=== PATIENT | female | born 1945 | race Hispanic/Latino ===

== ENCOUNTER → 2020-12-05 | Outpatient (CLI) | payer OTHER ==
[~2020-12-05] MED LIST: CIPR500T10 PO; CYCL5TAB PO; LOSA1TAB42 PO; MELO-106 PO; METF-444 PO; METR500T PO; ONDA-104 PO; SIMV40TA59 PO
== END | disposition home or self-care (01) ==
LOC: SHCH 12:10
PROVIDERS: ATTEND Internal Medicine Cardiovascular Disease
DX: R07.9 Chest pain, unspecified (principal)
CPT/HCPCS: 93306; 93356

== ENCOUNTER → 2020-12-11 | Outpatient (CLI) | payer OTHER ==
[~2020-12-11] MED LIST changes: +REGADENOSON 0.4 MG/5 ML PF SYG IVP SCH
== END | disposition home or self-care (01) ==
LOC: SHCH 09:12
PROVIDERS: ATTEND Internal Medicine Cardiovascular Disease
DX: R07.9 Chest pain, unspecified (principal)
CPT/HCPCS: 78452; 93017; 96374; A9500 ×2

== ENCOUNTER 2021-09-22 14:08 | Inpatient (IN) | payer OTHER ==
[~2021-09-22] VITALS: Ht 149.9 cm; Wt 56.6 kg
[~2021-09-22 14:08] MED LIST changes: -REGADENOSON 0.4 MG/5 ML PF SYG IVP SCH
[2021-09-22 14:41] LABS: BASOPHILS % (AUTO) 0.2 % (0.0-5.0); EOSINOPHILS % (AUTO) 0.1 % (0.0-8.0); HEMATOCRIT 38.7 % (36-48); LYMPHOCYTES % (AUTO) 10.8 % (21.0-51.0); MEAN CORPUSCULAR HEMOGLOBIN 30.5 pg (27.0-33.0); MEAN CORPUSCULAR HGB CONC 32.8 g/dL (32.0-36.0); MEAN CORPUSCULAR VOLUME 92.8 fL (79-99); MONOCYTES % (AUTO) 4.9 % (3.0-13.0); NEUTROPHILS % (AUTO) 83.5 % (40.0-77.0); PLATELET COUNT (AUTO) 208 K/uL (130-400); RED BLOOD CELL COUNT(AUTO) 4.17 MIL/uL (4.00-5.50); RED CELL DISTRIBUTION WIDTH 13.6 % (11.0-15.5); WHITE BLOOD COUNT (AUTO) 18.7 K/uL (4.8-10.8)
[2021-09-22 14:50] LABS: CREATININE 0.8 mg/dL (0.5-1.5); POTASSIUM 3.8 mmol/L (3.5-5.1)
[2021-09-22 14:52] LABS: INR 1.12 (0.85-1.15); PROTHROMBIN TIME 12.1 SEC (9.6-11.6)
[2021-09-22 14:54] LABS: PARTIAL THROMBOPLASTIN TIME 30.5 SEC (26.3-35.5)
[2021-09-22 14:57] LABS: BILIRUBIN,TOTAL 0.9 mg/dL (0.2-1.0); TOTAL PROTEIN, SERUM 7.2 g/dL (6.0-8.3)
[2021-09-22] MEDS ORDERED: IOHEXOL-350 75 ML VIAL IV ONE (15:04)
[2021-09-22] MEDS ORDERED: ZOSYN 3.375GM +NS 50ML IV SCH (15:30)
[2021-09-22] MEDS ORDERED: KETOROLAC 15MG/ML VIAL (15MG/ML) IV ONE (15:30)
[2021-09-22 16:13] LABS: APPEARANCE,URINE CLEAR (CLEAR); BILIRUBIN,URINE NEGATIVE (NEGATIVE); COLOR,URINE YELLOW (YELLOW); GLUCOSE, URINE (UA) NEGATIVE (NEGATIVE); KETONES,URINE NEGATIVE (NEGATIVE); LEUKOCYTE ESTERASE ,URINE NEGATIVE (NEGATIVE); NITRATE,URINE NEGATIVE (NEGATIVE); OCCULT BLOOD,URINE MODERATE (NEGATIVE); PROTEIN,URINE NEGATIVE (NEGATIVE); UROBILINOGEN,URINE 0.2 mg/dL (0.2-1.0)
[2021-09-22 16:38] LABS: BACTERIA,URINE Few /HPF (None Seen); SQUAMOUS EPITHELIAL CELL,UR Few /HPF (0-2); WBC,URINE 0-1 /HPF (0-1)
[2021-09-22] MEDS ORDERED: LABETALOL 20MG SYG IV PRN (17:30)
[2021-09-22] MEDS ORDERED: LACTULOSE 20 GM/30 ML UDCUP PO PRN (17:30)
[2021-09-22] MEDS ORDERED: ALBUTEROL 0.083% 2.5 MG/3 ML INH IH PRN (17:30)
[2021-09-22] MEDS ORDERED: HYDRALAZINE 20MG/ML VIAL IV PRN (17:30)
[2021-09-22] MEDS: DEXTROSE 5%-LACTATED RINGERS 1,000 ML IV SCH (19:01)
[2021-09-22] MEDS: INSULIN HUMULIN R 100 UNIT/ML 3ML SQ SCH (20:43)
[2021-09-22] MEDS: ACETAMINOPHEN 325 MG TAB PO PRN (20:43)
[2021-09-22 22:40] VITALS: BP 151/74
[2021-09-23] MEDS: HYDROMORPHONE 0.5 MG SYG (0.5MG/0.5ML) IVP PRN ×2 (01:02→10:50)
[2021-09-23] MEDS: ZOSYN 3.375GM +NS 50ML IV SCH ×3 (01:03→16:42)
[2021-09-23 04:00] VITALS: BP 124/62
[2021-09-23 06:17] LABS: BASOPHILS % (AUTO) 0.1 % (0.0-5.0); EOSINOPHILS % (AUTO) 0.4 % (0.0-8.0); HEMATOCRIT 36.7 % (36-48); LYMPHOCYTES % (AUTO) 9.8 % (21.0-51.0); MEAN CORPUSCULAR HEMOGLOBIN 30.5 pg (27.0-33.0); MEAN CORPUSCULAR HGB CONC 32.7 g/dL (32.0-36.0); MEAN CORPUSCULAR VOLUME 93.1 fL (79-99); MONOCYTES % (AUTO) 5.2 % (3.0-13.0); PLATELET COUNT (AUTO) 203 K/uL (130-400); RED BLOOD CELL COUNT(AUTO) 3.94 MIL/uL (4.00-5.50); RED CELL DISTRIBUTION WIDTH 13.6 % (11.0-15.5)
[2021-09-23 06:27] LABS: CREATININE 0.9 mg/dL (0.5-1.5); MAGNESIUM 1.8 mg/dL (1.80-2.40); PHOSPHORUS 3.4 mg/dL (2.5-4.9); POTASSIUM 3.5 mmol/L (3.5-5.1)
[2021-09-23] MEDS: INSULIN HUMULIN R 100 UNIT/ML 3ML SQ SCH ×4 (06:30→21:00)
[2021-09-23 08:00] VITALS: BP 123/66
[2021-09-23] MEDS: ENOXAPARIN SODIUM 40 MG/0.4 ML SYRINGE SQ SCH (08:47)
[2021-09-23] MEDS ORDERED: PANTOPRAZOLE 40 MG TAB DR PO SCH (09:00)
[2021-09-23] MEDS ORDERED: KETOROLAC 15MG/ML VIAL (15MG/ML) IM PRN (10:30)
[2021-09-23 11:29] VITALS: BP 123/66
[2021-09-23] MEDS: ONDANSETRON 4MG INJ IVP PRN ×2 (11:30→16:42)
[2021-09-23] MEDS: DEXTROSE 5%-LACTATED RINGERS 1,000 ML IV SCH ×2 (13:35→22:49)
[2021-09-23] MEDS: METRONIDAZOLE 500MG/100ML BAG 100 ML IVPB SCH ×2 (14:00→21:30)
[2021-09-23 16:00] VITALS: BP 136/60
[2021-09-23] MEDS ORDERED: KETOROLAC 15MG/ML VIAL (15MG/ML) IM SCH (16:30)
[2021-09-23] MEDS: PANTOPRAZOLE 40 MG/VIAL IVP SCH (16:44)
[2021-09-23 20:00] VITALS: BP 144/75
[2021-09-23] MEDS: KETOROLAC 15MG/ML VIAL (15MG/ML) IV SCH (22:48)
[2021-09-24] VITALS: BP 135/76
[2021-09-24] MEDS: ZOSYN 3.375GM +NS 50ML IV SCH ×3 (01:13→17:24)
[2021-09-24 04:00] VITALS: BP 151/66
[2021-09-24] MEDS: KETOROLAC 15MG/ML VIAL (15MG/ML) IV SCH ×4 (04:48→22:30)
[2021-09-24 04:53] LABS: BASOPHILS % (AUTO) 0.1 % (0.0-5.0); EOSINOPHILS % (AUTO) 0.5 % (0.0-8.0); HEMATOCRIT 35.3 % (36-48); MEAN CORPUSCULAR HEMOGLOBIN 30.3 pg (27.0-33.0); MEAN CORPUSCULAR HGB CONC 32.6 g/dL (32.0-36.0); MEAN CORPUSCULAR VOLUME 93.1 fL (79-99); MONOCYTES % (AUTO) 8.2 % (3.0-13.0); NEUTROPHILS % (AUTO) 75.9 % (40.0-77.0); PLATELET COUNT (AUTO) 210 K/uL (130-400); RED BLOOD CELL COUNT(AUTO) 3.79 MIL/uL (4.00-5.50); RED CELL DISTRIBUTION WIDTH 13.4 % (11.0-15.5); WHITE BLOOD COUNT (AUTO) 10.9 K/uL (4.8-10.8)
[2021-09-24 05:18] LABS: ALBUMIN 2.5 g/dL (3.5-5.0); BILIRUBIN,TOTAL 0.4 mg/dL (0.2-1.0); CREATININE 0.8 mg/dL (0.5-1.5); CRP QUANTITATIVE 248.4 mg/L (0.00-9.0); POTASSIUM 3.3 mmol/L (3.5-5.1); TOTAL PROTEIN, SERUM 6.6 g/dL (6.0-8.3)
[2021-09-24] MEDS: METRONIDAZOLE 500MG/100ML BAG 100 ML IVPB SCH ×2 (05:41→13:29)
[2021-09-24] MEDS: INSULIN HUMULIN R 100 UNIT/ML 3ML SQ SCH ×4 (06:04→20:20)
[2021-09-24 06:05] LABS: ERYTHROCYTE SEDIMENTATION RATE 75 MM/HR (0-30)
[2021-09-24] MEDS ORDERED: POTASSIUM CHLORIDE 10MEQ/100ML 10 MEQ/100 ML ML IV SCH (07:30)
[2021-09-24 08:00] VITALS: BP 134/63
[2021-09-24] MEDS: ENOXAPARIN SODIUM 40 MG/0.4 ML SYRINGE SQ SCH (09:16)
[2021-09-24] MEDS: PANTOPRAZOLE 40 MG/VIAL IVP SCH (09:16)
[2021-09-24] MEDS: DEXTROSE 5%-LACTATED RINGERS 1,000 ML IV SCH ×2 (10:04→22:54)
[2021-09-24 11:59] VITALS: BP 161/92
[2021-09-24 16:50] VITALS: BP 154/79
[2021-09-24] MEDS: ACETAMINOPHEN 325 MG TAB PO PRN (17:24)
[2021-09-24 19:45] VITALS: BP 150/80
[2021-09-24] MEDS: LISINOPRIL 10 MG TABLET PO SCH (20:20)
[2021-09-24] MEDS: ACETAMINOPHEN WITH CODEINE 1 TAB TAB PO PRN (22:55)
[2021-09-25] VITALS (7 sets, daily range): BP systolic 140–184; BP diastolic 67–89
[2021-09-25] MEDS: ZOSYN 3.375GM +NS 50ML IV SCH ×3 (01:31→17:40)
[2021-09-25] MEDS: KETOROLAC 15MG/ML VIAL (15MG/ML) IV SCH ×4 (04:30→16:30)
[2021-09-25 04:52] LABS: BASOPHILS % (AUTO) 0.1 % (0.0-5.0); EOSINOPHILS % (AUTO) 1.3 % (0.0-8.0); HEMATOCRIT 34.7 % (36-48); MEAN CORPUSCULAR HEMOGLOBIN 31.2 pg (27.0-33.0); MEAN CORPUSCULAR HGB CONC 33.1 g/dL (32.0-36.0); MONOCYTES % (AUTO) 10.2 % (3.0-13.0); PLATELET COUNT (AUTO) 224 K/uL (130-400); RED BLOOD CELL COUNT(AUTO) 3.69 MIL/uL (4.00-5.50); RED CELL DISTRIBUTION WIDTH 13.4 % (11.0-15.5); WHITE BLOOD COUNT (AUTO) 8.3 K/uL (4.8-10.8)
[2021-09-25 05:08] LABS: ALBUMIN 2.4 g/dL (3.5-5.0); BILIRUBIN,TOTAL 0.4 mg/dL (0.2-1.0); CREATININE 0.8 mg/dL (0.5-1.5); POTASSIUM 3.1 mmol/L (3.5-5.1); TOTAL PROTEIN, SERUM 6.4 g/dL (6.0-8.3)
[2021-09-25] MEDS: INSULIN HUMULIN R 100 UNIT/ML 3ML SQ SCH ×4 (05:44→21:00)
[2021-09-25] MEDS: DEXTROSE 5%-LACTATED RINGERS 1,000 ML IV SCH ×2 (07:51→17:43)
[2021-09-25] MEDS: PANTOPRAZOLE 40 MG/VIAL IVP SCH (10:49)
[2021-09-25] MEDS: ENOXAPARIN SODIUM 40 MG/0.4 ML SYRINGE SQ SCH (10:51)
[2021-09-25] MEDS: LISINOPRIL 10 MG TABLET PO SCH ×2 (10:51→21:37)
[2021-09-25] MEDS ORDERED: POTASSIUM CHLORIDE 20MEQ/100ML 100 ML IV PRN (13:00)
[2021-09-25] MEDS ORDERED: LABETALOL 20MG VIAL IV PRN ×2 (13:00→17:00)
[2021-09-25] MEDS ORDERED: LIDOCAINE HCL-MPF 1% 2ML VIAL IV PRN (13:00)
[2021-09-25] MEDS ORDERED: POTASSIUM CHLORIDE 10% ELIXIR 20 MEQ/15 ML UDCUP PO PRN (13:00)
[2021-09-25] MEDS: KCL 20 MEQ ERTAB PO PRN ×3 (13:22→21:36)
[2021-09-25] MEDS ORDERED: LACTULOSE 20 GM/30 ML UDCUP PO ONE (16:30)
[2021-09-25] MEDS ORDERED: LISINOPRIL 20 MG TABLET PO SCH (16:41)
[2021-09-25] MEDS: HYDRALAZINE 25MG TABLET PO SCH ×2 (17:38→21:31)
[2021-09-25] MEDS: ACETAMINOPHEN WITH CODEINE 1 TAB TAB PO PRN (21:30)
[2021-09-26] MEDS: ZOSYN 3.375GM +NS 50ML IV SCH ×3 (01:24→17:44)
[2021-09-26] MEDS: DEXTROSE 5%-LACTATED RINGERS 1,000 ML IV SCH ×2 (01:38→13:51)
[2021-09-26 03:50] VITALS: BP 155/75
[2021-09-26] MEDS: KETOROLAC 15MG/ML VIAL (15MG/ML) IV SCH ×4 (03:57→22:30)
[2021-09-26 05:11] LABS: BASOPHILS % (AUTO) 0.2 % (0.0-5.0); EOSINOPHILS % (AUTO) 1.2 % (0.0-8.0); LYMPHOCYTES % (AUTO) 28.9 % (21.0-51.0); MEAN CORPUSCULAR HEMOGLOBIN 30.1 pg (27.0-33.0); MEAN CORPUSCULAR HGB CONC 32.4 g/dL (32.0-36.0); MEAN CORPUSCULAR VOLUME 92.7 fL (79-99); MONOCYTES % (AUTO) 11.8 % (3.0-13.0); NEUTROPHILS % (AUTO) 57.4 % (40.0-77.0); PLATELET COUNT (AUTO) 241 K/uL (130-400); RED BLOOD CELL COUNT(AUTO) 3.99 MIL/uL (4.00-5.50); RED CELL DISTRIBUTION WIDTH 13.2 % (11.0-15.5); WHITE BLOOD COUNT (AUTO) 9.7 K/uL (4.8-10.8)
[2021-09-26 05:37] LABS: ALBUMIN 2.5 g/dL (3.5-5.0); BILIRUBIN,TOTAL 0.5 mg/dL (0.2-1.0); CREATININE 0.8 mg/dL (0.5-1.5); POTASSIUM 3.3 mmol/L (3.5-5.1); TOTAL PROTEIN, SERUM 6.7 g/dL (6.0-8.3)
[2021-09-26 07:00] VITALS: BP 188/85
[2021-09-26] MEDS: INSULIN HUMULIN R 100 UNIT/ML 3ML SQ SCH ×4 (07:30→21:00)
[2021-09-26] MEDS: HYDRALAZINE 25MG TABLET PO SCH ×3 (08:45→20:55)
[2021-09-26] MEDS: KCL 20 MEQ ERTAB PO PRN ×2 (08:46→19:44)
[2021-09-26] MEDS: ENOXAPARIN SODIUM 40 MG/0.4 ML SYRINGE SQ SCH (08:46)
[2021-09-26] MEDS: PANTOPRAZOLE 40 MG/VIAL IVP SCH (08:46)
[2021-09-26] MEDS: LISINOPRIL 10 MG TABLET PO SCH ×2 (08:46→20:54)
[2021-09-26] MEDS ORDERED: AMLODIPINE 5 MG TAB PO SCH (09:00)
[2021-09-26] MEDS: POLYETHYLENE GLYCOL 3350 17 GM POWD.PACK PO SCH (09:00)
[2021-09-26 11:45] VITALS: BP 151/71
[2021-09-26 15:00] VITALS: BP 145/68
[2021-09-26] MEDS ORDERED: METF-444 PO (19:54)
[2021-09-26] MEDS ORDERED: LOSA100T58 PO (19:54)
[2021-09-26] MEDS ORDERED: SERT-438 PO (19:54)
[2021-09-26] MEDS ORDERED: ATOR20TA65 PO (19:54)
[2021-09-26] MEDS ORDERED: BENZ-70 PO (19:54)
[2021-09-26 19:56] VITALS: BP 153/67
[2021-09-26] MEDS ORDERED: AZIT500T4 PO (19:57)
[2021-09-26] MEDS ORDERED: ESOM20CA60 PO (19:57)
[2021-09-26] MEDS: ACETAMINOPHEN WITH CODEINE 1 TAB TAB PO PRN (20:57)
[2021-09-26 23:39] VITALS: BP 151/67
[2021-09-27] MEDS: KCL 20 MEQ ERTAB PO PRN ×2 (02:10→18:51)
[2021-09-27] MEDS: ZOSYN 3.375GM +NS 50ML IV SCH ×3 (02:10→19:02)
[2021-09-27 03:45] VITALS: BP 144/69
[2021-09-27] MEDS: KETOROLAC 15MG/ML VIAL (15MG/ML) IV SCH ×4 (04:30→22:30)
[2021-09-27 04:52] LABS: BASOPHILS % (AUTO) 0.3 % (0.0-5.0); EOSINOPHILS % (AUTO) 1.8 % (0.0-8.0); HEMATOCRIT 37.2 % (36-48); LYMPHOCYTES % (AUTO) 38.9 % (21.0-51.0); MEAN CORPUSCULAR HEMOGLOBIN 29.6 pg (27.0-33.0); MEAN CORPUSCULAR HGB CONC 32.3 g/dL (32.0-36.0); MEAN CORPUSCULAR VOLUME 91.9 fL (79-99); MONOCYTES % (AUTO) 12.5 % (3.0-13.0); PLATELET COUNT (AUTO) 263 K/uL (130-400); RED BLOOD CELL COUNT(AUTO) 4.05 MIL/uL (4.00-5.50); RED CELL DISTRIBUTION WIDTH 13.2 % (11.0-15.5); WHITE BLOOD COUNT (AUTO) 7.9 K/uL (4.8-10.8)
[2021-09-27 05:13] LABS: ALBUMIN 2.4 g/dL (3.5-5.0); BILIRUBIN,TOTAL 0.4 mg/dL (0.2-1.0); CREATININE 0.8 mg/dL (0.5-1.5); POTASSIUM 3.5 mmol/L (3.5-5.1); TOTAL PROTEIN, SERUM 6.7 g/dL (6.0-8.3)
[2021-09-27 07:00] VITALS: BP 165/88
[2021-09-27] MEDS: INSULIN HUMULIN R 100 UNIT/ML 3ML SQ SCH ×4 (07:29→21:00)
[2021-09-27] MEDS: PANTOPRAZOLE 40 MG/VIAL IVP SCH (08:54)
[2021-09-27] MEDS: LISINOPRIL 10 MG TABLET PO SCH ×2 (08:54→21:18)
[2021-09-27] MEDS: ENOXAPARIN SODIUM 40 MG/0.4 ML SYRINGE SQ SCH (08:54)
[2021-09-27] MEDS: POLYETHYLENE GLYCOL 3350 17 GM POWD.PACK PO SCH (08:55)
[2021-09-27] MEDS: HYDRALAZINE 25MG TABLET PO SCH ×3 (08:55→21:18)
[2021-09-27] MEDS: AMLODIPINE 5 MG TAB PO SCH (08:55)
[2021-09-27] MEDS: DEXTROSE 5%-LACTATED RINGERS 1,000 ML IV SCH (09:15)
[2021-09-27 11:00] VITALS: BP 145/67
[2021-09-27 15:00] VITALS: BP 131/65
[2021-09-27 20:04] VITALS: BP 159/66
[2021-09-27] MEDS: ACETAMINOPHEN WITH CODEINE 1 TAB TAB PO PRN (21:23)
[2021-09-27 23:26] VITALS: BP 101/62
[2021-09-28] MEDS: ZOSYN 3.375GM +NS 50ML IV SCH ×2 (00:42→10:32)
[2021-09-28 03:52] VITALS: BP 110/61
[2021-09-28] MEDS: KETOROLAC 15MG/ML VIAL (15MG/ML) IV SCH ×2 (04:21→10:30)
[2021-09-28 05:18] LABS: MAGNESIUM 1.9 mg/dL (1.80-2.40); PHOSPHORUS 4.5 mg/dL (2.5-4.9); POTASSIUM 3.9 mmol/L (3.5-5.1)
[2021-09-28] MEDS: INSULIN HUMULIN R 100 UNIT/ML 3ML SQ SCH ×2 (06:38→11:30)
[2021-09-28 08:00] VITALS: BP 131/68
[2021-09-28] MEDS: AMLODIPINE 5 MG TAB PO SCH (10:30)
[2021-09-28] MEDS: HYDRALAZINE 25MG TABLET PO SCH ×2 (10:30→14:25)
[2021-09-28] MEDS: ENOXAPARIN SODIUM 40 MG/0.4 ML SYRINGE SQ SCH (10:31)
[2021-09-28] MEDS: POLYETHYLENE GLYCOL 3350 17 GM POWD.PACK PO SCH (10:31)
[2021-09-28] MEDS: PANTOPRAZOLE 40 MG/VIAL IVP SCH (10:31)
[2021-09-28] MEDS: LISINOPRIL 10 MG TABLET PO SCH (10:33)
[2021-09-28 11:55] VITALS: BP 113/55
[2021-09-28] MEDS ORDERED: POLY17PO4 PO (13:47)
[2021-09-28] MEDS ORDERED: AMOX-426 PO (13:47)
== END 2021-09-28 16:20 | disposition home or self-care (01) | DRG 392 ==
LOC: EDH 14:08 → EDHIP 17:26 → OBSVTOIN 17:26 → 3BH 22:20
PROVIDERS: ADMIT Internal Medicine Critical Care Medicine; ATTEND Internal Medicine Critical Care Medicine
DX: K57.32 Diverticulitis of large intestine without perforation or abscess without bleeding (principal); E11.9 Type 2 diabetes mellitus without complications; I10 Essential (primary) hypertension; E78.5 Hyperlipidemia, unspecified; D72.829 Elevated white blood cell count, unspecified; K76.0 Fatty (change of) liver, not elsewhere classified; M19.90 Unspecified osteoarthritis, unspecified site; K44.9 Diaphragmatic hernia without obstruction or gangrene; E78.00 Pure hypercholesterolemia, unspecified; Z79.84 Long term (current) use of oral hypoglycemic drugs; Z79.899 Other long term (current) drug therapy; Z90.49 Acquired absence of other specified parts of digestive tract; Z88.8 Allergy status to other drugs, medicaments and biological substances; Z80.0 Family history of malignant neoplasm of digestive organs
CPT/HCPCS: 36415; 71045; 74177; 80048; 80053; 81001; 82948; 83605; 83735; 84100; 84145; 84484; 85025; 85610; 85651; 85730; 86140; 87040; 93005; C9113; G0378; J1170; J1650; J1815; J1885; J2405; J2543; J3490; Q9967

== ENCOUNTER 2022-10-31 17:04 | Inpatient (IN) | payer OTHER ==
[~2022-10-31] VITALS: Ht 177.8 cm; Wt 54.4 kg
[~2022-10-31 17:04] MED LIST changes: +AMOX-426 PO; +ATOR20TA65 PO; +BENZ-226 PO; -CIPR500T10 PO; -CYCL5TAB PO; +ESOM20CA60 PO; +LOSA100T58 PO; -LOSA1TAB42 PO; -METR500T PO; -ONDA-104 PO; +POLY17PO4 PO; +SERT-438 PO; -SIMV40TA59 PO
[2022-10-31 17:17] LABS: BASOPHILS % (AUTO) 0.4 % (0.0-5.0); EOSINOPHILS % (AUTO) 0.7 % (0.0-8.0); HEMATOCRIT 43.5 % (36-48); LYMPHOCYTES % (AUTO) 33.6 % (21.0-51.0); MEAN CORPUSCULAR HEMOGLOBIN 30.4 pg (27.0-33.0); MEAN CORPUSCULAR HGB CONC 32.6 g/dL (32.0-36.0); MEAN CORPUSCULAR VOLUME 93.1 fL (79-99); NEUTROPHILS % (AUTO) 56.9 % (40.0-77.0); PLATELET COUNT (AUTO) 273 K/uL (130-400); RED BLOOD CELL COUNT(AUTO) 4.67 MIL/uL (4.00-5.50); WHITE BLOOD COUNT (AUTO) 11.8 K/uL (4.8-10.8)
[2022-10-31 17:27] LABS: POTASSIUM 3.9 mmol/L (3.5-5.1)
[2022-10-31] MEDS ORDERED: DILTIAZEM 125 MG/25 ML INJ 125 MG in 0.9%NACL 100ML 100 ML IV SCH (17:30)
[2022-10-31] MEDS ORDERED: 0.9%NACL 1000ML 1,000 ML IV ONE (17:30)
[2022-10-31] MEDS ORDERED: DILTIAZEM 25MG INJ IVP ONE (17:30)
[2022-10-31 17:36] LABS: MAGNESIUM 1.8 mg/dL (1.80-2.40); TOTAL PROTEIN, SERUM 8.3 g/dL (6.0-8.3)
[2022-10-31 17:57] LABS: B-TYPE NATRIURETIC PEPTIDE 266 pg/mL (0-100)
[2022-10-31] MEDS ORDERED: ACETAMINOPHEN 500 MG TABLET PO ONE (18:30)
[2022-10-31 18:31] LABS: APPEARANCE,URINE CLEAR (CLEAR); BILIRUBIN,URINE NEGATIVE (NEGATIVE); COLOR,URINE COLORLESS (YELLOW); GLUCOSE, URINE (UA) NEGATIVE (NEGATIVE); KETONES,URINE NEGATIVE (NEGATIVE); LEUKOCYTE ESTERASE ,URINE 25 Leu/uL (NEGATIVE); NITRATE,URINE NEGATIVE (NEGATIVE); OCCULT BLOOD,URINE NEGATIVE (NEGATIVE); PROTEIN,URINE 30 mg/dL (NEGATIVE); UROBILINOGEN,URINE 0.2 mg/dL (0.2-1.0)
[2022-10-31 18:55] LABS: BACTERIA,URINE RARE /HPF (None Seen); RBC,URINE 0-1 /HPF (0-1); SQUAMOUS EPITHELIAL CELL,UR RARE /HPF (0-2); YEAST,URINE BUDDING RARE /HPF (None Seen)
[2022-10-31] MEDS ORDERED: LORAZEPAM 2 MG/ML 1 ML VIAL IVP ONE (19:00)
[2022-10-31] MEDS ORDERED: ONDANSETRON 4MG INJ IVP PRN (19:00)
[2022-10-31] MEDS ORDERED: LABETALOL 20MG SYG IV PRN (19:00)
[2022-10-31] MEDS ORDERED: HYDRALAZINE 20MG/ML VIAL IV PRN (19:00)
[2022-10-31] MEDS ORDERED: CLONIDINE HCL 0.1 MG TABLET PO PRN (19:00)
[2022-10-31] MEDS ORDERED: TEMAZEPAM 15 MG CAPSULE PO PRN (19:00)
[2022-10-31] MEDS ORDERED: DOCUSATE SODIUM 100 MG CAP PO PRN (19:00)
[2022-10-31] MEDS ORDERED: LACTULOSE 20 GM/30 ML UDCUP PO PRN (19:00)
[2022-10-31 19:54] LABS: INR 0.94 (0.85-1.15); PROTHROMBIN TIME 10.3 SEC (9.6-11.6)
[2022-10-31 19:55] LABS: PARTIAL THROMBOPLASTIN TIME 24.7 SEC (26.3-35.5)
[2022-10-31] MEDS ORDERED: IOHEXOL 350 MG/ML 100ML INFUS..BTL IV ONE (23:07)
[2022-10-31 23:42] VITALS: BP 133/64
[2022-11-01] MEDS ORDERED: ASPIRIN 325MG EC TAB PO ONE (01:30)
[2022-11-01] MEDS ORDERED: ENOXAPARIN SODIUM 60 MG/0.6 ML SQ ONE (01:30)
[2022-11-01 01:41] LABS: CHOLESTEROL 157 mg/dL (<200); HDL CHOLESTEROL 50 mg/dL (35-85); LDL DIRECT 88 mg/dL (0-99); TRIGLYCERIDES 151 mg/dL (30-200)
[2022-11-01] MEDS: ATORVASTATIN 40 MG TABLET PO SCH ×2 (02:06→20:37)
[2022-11-01] MEDS: METOPROLOL SUCCINATE 50 MG TAB.SR.24H PO SCH ×2 (02:06→08:27)
[2022-11-01 03:18] VITALS: BP 109/62
[2022-11-01 04:34] LABS: BASOPHILS % (AUTO) 0.3 % (0.0-5.0); EOSINOPHILS % (AUTO) 1.4 % (0.0-8.0); HEMATOCRIT 38.8 % (36-48); LYMPHOCYTES % (AUTO) 44.7 % (21.0-51.0); MEAN CORPUSCULAR HEMOGLOBIN 30.5 pg (27.0-33.0); MEAN CORPUSCULAR VOLUME 95.3 fL (79-99); MONOCYTES % (AUTO) 11.3 % (3.0-13.0); NEUTROPHILS % (AUTO) 42.1 % (40.0-77.0); PLATELET COUNT (AUTO) 245 K/uL (130-400); RED BLOOD CELL COUNT(AUTO) 4.07 MIL/uL (4.00-5.50); RED CELL DISTRIBUTION WIDTH 13.2 % (11.0-15.5); WHITE BLOOD COUNT (AUTO) 9.3 K/uL (4.8-10.8)
[2022-11-01 04:52] LABS: CREATININE 0.9 mg/dL (0.5-1.5); POTASSIUM 4.1 mmol/L (3.5-5.1)
[2022-11-01 04:55] LABS: MAGNESIUM 1.8 mg/dL (1.80-2.40); PHOSPHORUS 4.2 mg/dL (2.5-4.9)
[2022-11-01] MEDS ORDERED: MAGNESIUM 2GM PREMIX 50ML 50 ML IV PRN (05:00)
[2022-11-01] MEDS ORDERED: ENOXAPARIN SODIUM 60 MG/0.6 ML SQ SCH (08:00)
[2022-11-01 08:06] VITALS: BP 139/75
[2022-11-01] MEDS: ASPIRIN 81MG CHEW TAB PO SCH (08:27)
[2022-11-01] MEDS: PANTOPRAZOLE 40 MG TAB DR PO SCH (08:27)
[2022-11-01 11:13] VITALS: BP 152/75
[2022-11-01] MEDS ORDERED: AZITHROMYCIN 500MG+NS 250ML IVPB SCH (11:30)
[2022-11-01] MEDS ORDERED: 0.9%NACL 50ML IV SCH (11:30)
[2022-11-01] MEDS ORDERED: ZOSYN 3.375GM +NS 50ML IVPB SCH (11:30)
[2022-11-01] MEDS ORDERED: METF-444 PO (15:08)
[2022-11-01] MEDS ORDERED: TRAZ-185 PO (15:08)
[2022-11-01] MEDS ORDERED: BACL5TAB PO (15:08)
[2022-11-01] MEDS ORDERED: METO50TA9 PO (15:08)
[2022-11-01] MEDS ORDERED: GABA-529 PO (15:08)
[2022-11-01 17:05] VITALS: BP 134/66
[2022-11-01] MEDS ORDERED: CLOPIDOGREL 300MG TAB PO SCH (18:00)
[2022-11-01] MEDS ORDERED: SOTALOL HCL 80 MG TABLET ONE (18:33)
[2022-11-01] MEDS: SOTALOL HCL 80 MG TABLET PO SCH (18:34)
[2022-11-01 20:09] VITALS: BP 127/66
[2022-11-01 23:53] VITALS: BP 142/81
[2022-11-02] VITALS (15 sets, daily range): BP systolic 130–168; BP diastolic 64–90
[2022-11-02 03:41] LABS: BASOPHILS % (AUTO) 0.5 % (0.0-5.0); EOSINOPHILS % (AUTO) 2.3 % (0.0-8.0); HEMATOCRIT 38.2 % (36-48); LYMPHOCYTES % (AUTO) 44.9 % (21.0-51.0); MEAN CORPUSCULAR HGB CONC 32.7 g/dL (32.0-36.0); MEAN CORPUSCULAR VOLUME 94.8 fL (79-99); MONOCYTES % (AUTO) 10.3 % (3.0-13.0); NEUTROPHILS % (AUTO) 41.7 % (40.0-77.0); PLATELET COUNT (AUTO) 241 K/uL (130-400); RED BLOOD CELL COUNT(AUTO) 4.03 MIL/uL (4.00-5.50); RED CELL DISTRIBUTION WIDTH 13.1 % (11.0-15.5)
[2022-11-02 03:50] LABS: CREATININE 1.1 mg/dL (0.5-1.5); POTASSIUM 4.3 mmol/L (3.5-5.1)
[2022-11-02] MEDS: SOTALOL HCL 80 MG TABLET PO SCH (08:14)
[2022-11-02] MEDS: ASPIRIN 81MG CHEW TAB PO SCH (08:14)
[2022-11-02] MEDS: METOPROLOL SUCCINATE 50 MG TAB.SR.24H PO SCH (08:14)
[2022-11-02] MEDS: PANTOPRAZOLE 40 MG TAB DR PO SCH (08:14)
[2022-11-02] MEDS: ACETAMINOPHEN 325 MG TAB PO PRN ×2 (08:21→20:45)
[2022-11-02] MEDS ORDERED: LIDOCAINE HCL 400MG/20ML VIAL ONE (08:54)
[2022-11-02] MEDS ORDERED: FENTANYL CITRATE PF 50 MCG/1 ML 2ML VIAL ONE (08:54)
[2022-11-02] MEDS ORDERED: HEPARIN 10,000 UNIT/10ML (1,000 UNIT/ML) VIAL ONE (08:55)
[2022-11-02] MEDS ORDERED: IOHEXOL-350 75 ML VIAL IV ONE (08:55)
[2022-11-02] MEDS ORDERED: MIDAZOLAM HCL 1 MG/ML 2ML VIAL ONE (08:55)
[2022-11-02] MEDS ORDERED: BIVALIRUDIN 250 MG/VIAL IV ONE (08:55)
[2022-11-02] MEDS ORDERED: IOHEXOL-350 50ML VIAL IV ONE (08:55)
[2022-11-02] MEDS ORDERED: CLOPIDOGREL 75MG TAB PO SCH (09:00)
[2022-11-02] MEDS: 0.9%NACL 1000ML 1,000 ML IV SCH ×2 (10:54→12:12)
[2022-11-02] MEDS ORDERED: SOTALOL HCL 80 MG TABLET PO SCH (12:30)
[2022-11-02] MEDS: ATORVASTATIN 40 MG TABLET PO SCH (20:43)
[2022-11-03 00:23] VITALS: BP 130/66
[2022-11-03 03:57] LABS: BASOPHILS % (AUTO) 0.4 % (0.0-5.0); EOSINOPHILS % (AUTO) 1.8 % (0.0-8.0); HEMATOCRIT 39.1 % (36-48); LYMPHOCYTES % (AUTO) 45.4 % (21.0-51.0); MEAN CORPUSCULAR HEMOGLOBIN 31.3 pg (27.0-33.0); MEAN CORPUSCULAR HGB CONC 32.7 g/dL (32.0-36.0); MEAN CORPUSCULAR VOLUME 95.6 fL (79-99); MONOCYTES % (AUTO) 10.8 % (3.0-13.0); NEUTROPHILS % (AUTO) 41.3 % (40.0-77.0); PLATELET COUNT (AUTO) 240 K/uL (130-400); RED BLOOD CELL COUNT(AUTO) 4.09 MIL/uL (4.00-5.50); RED CELL DISTRIBUTION WIDTH 12.8 % (11.0-15.5); WHITE BLOOD COUNT (AUTO) 10.3 K/uL (4.8-10.8)
[2022-11-03 04:00] LABS: POTASSIUM 4.2 mmol/L (3.5-5.1)
[2022-11-03 04:53] VITALS: BP 159/70
[2022-11-03] MEDS: PANTOPRAZOLE 40 MG TAB DR PO SCH (08:17)
[2022-11-03] MEDS: SOTALOL HCL 80 MG TABLET PO SCH (08:17)
[2022-11-03] MEDS: APIXABAN 5 MG TABLET PO SCH ×2 (08:18→21:30)
[2022-11-03] MEDS: METOPROLOL SUCCINATE 50 MG TAB.SR.24H PO SCH (08:18)
[2022-11-03 08:47] VITALS: BP 148/74
[2022-11-03 12:00] VITALS: BP 144/77
[2022-11-03 16:23] VITALS: BP 145/72
[2022-11-03 20:25] VITALS: BP 153/74
[2022-11-03] MEDS: ATORVASTATIN 40 MG TABLET PO SCH (21:30)
[2022-11-04 00:34] VITALS: BP 144/72
[2022-11-04 03:54] LABS: BASOPHILS % (AUTO) 0.5 % (0.0-5.0); EOSINOPHILS % (AUTO) 2.2 % (0.0-8.0); HEMATOCRIT 38.4 % (36-48); LYMPHOCYTES % (AUTO) 47.6 % (21.0-51.0); MEAN CORPUSCULAR HGB CONC 32.3 g/dL (32.0-36.0); NEUTROPHILS % (AUTO) 38.5 % (40.0-77.0); PLATELET COUNT (AUTO) 239 K/uL (130-400); RED CELL DISTRIBUTION WIDTH 12.9 % (11.0-15.5); WHITE BLOOD COUNT (AUTO) 10.1 K/uL (4.8-10.8)
[2022-11-04 04:11] LABS: CREATININE 1.1 mg/dL (0.5-1.5); POTASSIUM 3.7 mmol/L (3.5-5.1)
[2022-11-04 04:40] VITALS: BP 167/92
[2022-11-04 08:06] VITALS: BP 159/89
[2022-11-04] MEDS: METOPROLOL SUCCINATE 50 MG TAB.SR.24H PO SCH (08:18)
[2022-11-04] MEDS: SOTALOL HCL 80 MG TABLET PO SCH (08:18)
[2022-11-04] MEDS: PANTOPRAZOLE 40 MG TAB DR PO SCH (08:19)
[2022-11-04] MEDS: APIXABAN 5 MG TABLET PO SCH (08:19)
[2022-11-04] MEDS ORDERED: LOSARTAN 100 MG TABLET PO SCH (09:00)
== END 2022-11-04 10:45 | disposition home or self-care (01) | DRG 280 ==
LOC: EDH 17:04 → EDHIP 18:56 → OBSVTOIN 18:56 → 2AH 23:04
PROVIDERS: ADMIT Internal Medicine; ATTEND Internal Medicine
PROC: 4A023N7 Measurement of Cardiac Sampling and Pressure, Left Heart, Percutaneous Approach (ICD-10-PCS; principal; 2022-11-02)
PROC: B2111ZZ Fluoroscopy of Multiple Coronary Arteries using Low Osmolar Contrast (ICD-10-PCS; 2022-11-02)
PROC: B2151ZZ Fluoroscopy of Left Heart using Low Osmolar Contrast (ICD-10-PCS; 2022-11-02)
PROC: B41G1ZZ Fluoroscopy of Left Lower Extremity Arteries using Low Osmolar Contrast (ICD-10-PCS; 2022-11-02)
DX: I11.0 Hypertensive heart disease with heart failure (principal); I50.33 Acute on chronic diastolic (congestive) heart failure; I21.A1 Myocardial infarction type 2; C85.90 Non-Hodgkin lymphoma, unspecified, unspecified site; D68.9 Coagulation defect, unspecified; C91.10 Chronic lymphocytic leukemia of B-cell type not having achieved remission; I25.10 Atherosclerotic heart disease of native coronary artery without angina pectoris; I48.0 Paroxysmal atrial fibrillation; I42.2 Other hypertrophic cardiomyopathy; F41.9 Anxiety disorder, unspecified; E11.9 Type 2 diabetes mellitus without complications; E78.5 Hyperlipidemia, unspecified; F39 Unspecified mood [affective] disorder; J02.0 Streptococcal pharyngitis; J84.10 Pulmonary fibrosis, unspecified; Z79.01 Long term (current) use of anticoagulants; I25.2 Old myocardial infarction; Z79.84 Long term (current) use of oral hypoglycemic drugs; Z79.899 Other long term (current) drug therapy; Z86.711 Personal history of pulmonary embolism; Z87.891 Personal history of nicotine dependence; Z90.710 Acquired absence of both cervix and uterus
CPT/HCPCS: 36415; 71045; 71270; 80048; 80053; 80061; 81001; 82948; 83036; 83735; 83880; 84100; 84443; 84484; 85025; 85378; 85610; 85730; 87088; 93005; 93306; 93356; 93458; 97039; 99156; 99157; 99291; C1760; C1894; G0378; J0456; J0583; J1644; J1650; J2060; J2250; J2543; J3010; J3475; J3490; Q9967

== ENCOUNTER → 2022-11-27 | Outpatient (CLI) | payer OTHER ==
[~2022-11-27] MED LIST changes: -AMOX-426 PO; -ATOR20TA65 PO; +BACL5TAB PO; -BENZ-226 PO; -ESOM20CA60 PO; +GABA-529 PO; -LOSA100T58 PO; +LOSA100T59 PO; -MELO-106 PO; +METO50TA9 PO; -POLY17PO4 PO; -SERT-438 PO; +TRAZ-185 PO
== END | disposition home or self-care (01) ==
LOC: SHCH 10:26
PROVIDERS: ATTEND Internal Medicine Cardiovascular Disease
DX: I08.3 Combined rheumatic disorders of mitral, aortic and tricuspid valves (principal)
CPT/HCPCS: 93306

== ENCOUNTER → 2022-12-06 | Outpatient (CLI) | payer OTHER | END | disposition home or self-care (01) | LOC: RAH 14:40 | PROVIDERS: ATTEND Internal Medicine Cardiovascular Disease | DX: Z13.6 Encounter for screening for cardiovascular disorders (principal); I51.5 Myocardial degeneration | CPT/HCPCS: 75571 ==

== ENCOUNTER 2023-11-21 20:28 | Emergency (ER) | payer OTHER ==
[~2023-11-21 20:28] MED LIST changes: +APIX5TAB PO; +ATOR40TA71 PO; +ESOM20CA60 PO; -GABA-529 PO; +PRED20TA3 PO; +SOTA80TA PO; -TRAZ-185 PO
== END 2023-11-21 22:04 | disposition left against medical advice (07) ==
LOC: EDH 20:28
DX: M79.602 Pain in left arm (principal); Z53.21 Procedure and treatment not carried out due to patient leaving prior to being seen by health care provider

== ENCOUNTER 2024-07-04 00:53 | Emergency (ER) | payer OTHER ==
[~2024-07-04] VITALS: Ht 154.9 cm; Wt 61.2 kg
[2024-07-04 01:18] LABS: BASOPHILS # (AUTO) 0.03 K/uL (0.00-0.20); BASOPHILS % (AUTO) 0.3 % (0.0-5.0); EOSINOPHILS # (AUTO) 0.11 K/uL (0.00-0.70); EOSINOPHILS % (AUTO) 0.9 % (0.0-8.0); HEMATOCRIT 40.9 % (36-48); IMMATURE GRANULOCYTE ABSOLUTE 0.06 K/uL (0-1); LYMPHOCYTES % (AUTO) 33.8 % (21.0-51.0); MEAN CORPUSCULAR HGB CONC 32.5 g/dL (32.0-36.0); MEAN CORPUSCULAR VOLUME 95.3 fL (79-99); MONOCYTES # (AUTO) 1.2 K/uL (0.1-1.0); MONOCYTES % (AUTO) 9.7 % (3.0-13.0); NEUTROPHILS # (AUTO) 6.5 K/uL (1.8-7.7); NEUTROPHILS % (AUTO) 54.8 % (40.0-77.0); PLATELET COUNT (AUTO) 247 K/uL (130-400); RED BLOOD CELL COUNT(AUTO) 4.29 MIL/uL (4.00-5.50); RED CELL DISTRIBUTION WIDTH 13.6 % (11.0-15.5); WHITE BLOOD COUNT (AUTO) 11.9 K/uL (4.8-10.8)
--- NOTE | 2024-07-04 01:19 | ERN ---
ED Note History of Present Illness Stated Complaint: CHEST PAIN Chief Complaint: Chest Pain Time Seen by MD: 00:57 Dictation: Patient is a 79-year-old female with a past medical history of hypertension, dyslipidemia, CHF, CAD, atrial fibrillation on Eliquis/metoprolol treatment. Patient presented to the ER complaining of shortness breath, chest discomfort with radiation to left arm, weakness. Patient states that the symptoms started 3 hours prior to arrival to the emergency department. She also stated that she has had dose episodes of chest/arm discomfort and was told she has a muscle around her heart causing the chest pain. During examination at bedside the patient was having reproducible left arm pain. Heart rate on arrival was in the 140s AFib, now is 100 during my evaluation. Patient said that she took her home medications including metoprolol, does not know the dose of her medication. Allergies: Coded Allergies: hydromorphone (Unverified Allergy, Unknown, NAUSEA/VOMITING, 09/23/21) Home Meds Active Scripts Prednisone (Prednisone) 20 Mg Tablet, 1 TAB PO AD for 3 Days, #6 TAB 0 Refills TAKE 1 TAB BY MOUTH THREE TIMES PER DAY X1 DAYS, THEN TAKE 1 TAB BY MOUTH TWICE A DAY X1 DAYS, THEN TAKE 1 TAB BY MOUTH ONCE A DAY X1 DAY. Prov:DA RAHMAN MD 10/30/23 Reported Medications Sotalol HCl (Sotalol) 80 Mg Tablet, 40 MG PO DAILY, TAB 04/21/23 Apixaban (Eliquis) 5 Mg Tablet, 5 MG PO BID, TAB 04/21/23 Atorvastatin Calcium (Atorvastatin Calcium) 40 Mg Tablet, 40 MG PO HS, TAB 04/21/23 Esomeprazole Magnesium (Nexium 24Hr) 20 Mg Capsule.dr, 20 MG PO DAILY, CAP 04/21/23 Metoprolol Succinate (Toprol Xl) 50 Mg Tab.er.24h, 50 MG PO DAILY, TAB 11/01/22 Baclofen (Baclofen) 5 Mg Tablet, 5 MG PO DAILY PRN for PAIN, TAB 11/01/22 Metformin HCl (Metformin HCl) 500 Mg Tablet, 500 MG PO DAILY, TAB 11/01/22 Losartan Potassium (Losartan Potassium) 100 Mg Tablet, 100 MG PO DAILY, TAB 09/26/21 Past Medical History Past Medical History: Unknown Additional Past Medical Hx: HYPERLIPIDEMIA Surgical History: Unknown Social History: Negative, Lives with family, Other History: Not Applicable Review of System Dictation NEGATIVE EXCEPT PER HPI Constitutional: Negative for fever,chills, and weight loss, reported weakness Eyes: Negative for injury, pain,redness, and discharge ENT: Negative for injury,pain or swelling Cardiovascular: Reports chest discomfort. Respiratory: Reports shortness breath. Abdomen/GI: Negative for abdominal pain, nausea, vomiting, diarrhea, and constipation Back: Negative for injury and pain : Negative for injury, bleeding and discharge MS/Extremity: Reports left arm pain Skin: Negative for rash, and discoloration Neuro: Negative for headache, weakness, numbness, tingling, and seizure Psych: Negative for suicide ideation, homicidal ideation, and hallucinations Initial Vital Sign VS Vital Signs Date Time Temp Pulse Resp B/P (MAP) Pulse Ox O2 Delivery O2 Flow Rate FiO2 07/04/24 01:06 97.5 122 16 96 Room Air 0 Physical Exam Dictation General: awake, alert, in mild distress due to pain Head/Face: Normocephalic, atraumatic Eyes: PERRL, EOMI, vision at baseline ENT: oral cavity clear, TMs clear, no signs of infection Neck: Trachea midline, supple, no nuchal rigidity Cardiovascular: RRR, normal S1/S2, No MRGs, no JVD Respiratory: CTAB, no respiratory distress, No rales or wheezes Abdomen: Soft , no tender Skin: Warm, dry, normal turgor, no rash MS/Extremity: Pulses equal, no cyanosis, neurovascular intact, FROM Neuro: COAx4, GCS 15, strength 5/5, CN 2-12 intact, normal cerebellar exam, normal gait, Psych: Normal behavior, mood, and affect normal Results (Laboratory/Radiology) Laboratory/Radiology Laboratory Tests Test 07/04/24 01:06 07/04/24 01:34 White Blood Count 11.9 K/uL (4.8-10.8) H Red Blood Count 4.29 MIL/uL (4.00-5.50) Hemoglobin 13.3 g/dL (12.0-16.0) Hematocrit 40.9 % (36-48) Mean Corpuscular Volume 95.3 fL (79-99) Mean Corpuscular Hemoglobin 31.0 pg (27.0-33.0) Mean Corpuscular Hemoglobin Concent 32.5 g/dL (32.0-36.0) Red Cell Distribution Width 13.6 % (11.0-15.5) Platelet Count 247 K/uL (130-400) Mean Platelet Volume 11.0 fL (7.5-10.5) H Immature Granulocyte % (Auto) 0.5 % (0-1) Neutrophils (%) (Auto) 54.8 % (40.0-77.0) Lymphocytes (%) (Auto) 33.8 % (21.0-51.0) Monocytes (%) (Auto) 9.7 % (3.0-13.0) Eosinophils (%) (Auto) 0.9 % (0.0-8.0) Basophils (%) (Auto) 0.3 % (0.0-5.0) Neutrophils # (Auto) 6.5 K/uL (1.8-7.7) Lymphocytes # (Auto) 4.0 K/uL (1.0-4.8) Monocytes # (Auto) 1.2 K/uL (0.1-1.0) H Eosinophils # (Auto) 0.11 K/uL (0.00-0.70) Basophils # (Auto) 0.03 K/uL (0.00-0.20) Absolute Immature Granulocyte (auto 0.06 K/uL (0-1) Nucleated Red Blood Cells 0.0 % (0.0-0.19) Sodium Level 141 mmol/L (136-145) Potassium Level 4.1 mmol/L (3.5-5.1) Chloride Level 108 mmol/L (101-111) Carbon Dioxide Level 19 mmol/L (21-32) L Blood Urea Nitrogen 20 mg/dL (7-18) H Creatinine 1.1 mg/dL (0.5-1.0) H Glomerular Filtration Rate Calc 51 mL/min (>90) Random Glucose 210 mg/dL (70-105) H Total Calcium 8.9 mg/dL (8.5-10.1) Total Creatine Kinase 104 U/L (21-232) # Troponin I High Sensitivity 60 ng/L (4-50) *H B-Type Natriuretic Peptide 377 pg/mL (0-100) H Troponin I < 0.05 ng/mL (0.00-0.05) ED Course ED Course Orders Procedure Category Date Status Time Vital Signs Per CPOE 07/04/24 Transmitted Routine 01:06 B-Type Natriuretic LAB 07/04/24 Complete Peptide 01:06 Chest 1vw RAD 07/04/24 Taken 01:06 12 Lead Ekg Tracing- EKG 07/04/24 Logged Technical 01:06 Oxygen By Nc/Pulse Ox CPOE 07/04/24 Transmitted 01:06 Maintain Iv CPOE 07/04/24 Transmitted 01:06 Iv Insertion CPOE 07/04/24 Transmitted 01:06 Cardiac Monitoring CPOE 07/04/24 Transmitted 01:06 Pulse Oximetry With CPOE 07/04/24 Transmitted Vs And Prn 01:06 Cbc With Differential LAB 07/04/24 Complete 01:06 Activity: Br W/Brp CPOE 07/04/24 Transmitted With Assist 01:06 Creatine Kinase, Total LAB 07/04/24 Complete 01:06 Urinalysis Profile LAB 07/04/24 Logged 01:06 Troponin Poc Order LAB 07/04/24 Complete Only 01:06 Bedside Troponin-I LAB.ER 07/04/24 In Process (Poc) 01:06 Basic Metabolic Panel LAB 07/04/24 Complete 01:06 Troponin I High LAB 07/04/24 Complete Sensitivity 01:08 Nitroglycerin 0.4mg PHA 07/04/24 In Process Sl Tab (Nitrostat) 01:30 Morphine 2mg Syg PHA 07/04/24 Complete (Morphine 2mg Syg) 01:30 Aspirin 325mg Ec Tab PHA 07/04/24 Complete (Aspirin 325mg Ec T 01:30 Current Medications Medications (Trade) Dose Ordered Sig/Leidy Route PRN Reason Start Time Stop Time Status Last Admin Dose Admin Aspirin (Aspirin 325mg Ec Tab) 325 mg ONCE ONCE PO 07/04/24 01:30 07/04/24 01:31 DC 07/04/24 01:34 Morphine Sulfate (morPHINE 2MG SYG) 2 mg ONCE ONCE IVP 07/04/24 01:30 07/04/24 01:31 DC 07/04/24 01:34 Nitroglycerin (Nitrostat) 0.4 mg AD PRN SL CHEST PAIN 07/04/24 01:30 08/03/24 01:29 07/04/24 01:34 Vital Signs Date Time Temp Pulse Resp B/P (MAP) Pulse Ox O2 Delivery O2 Flow Rate FiO2 12/11/24 01:06 97.5 122 16 96 Room Air 0 Medical Decision Making MDM Patient is a 79-year-old female with a past medical history of hypertension, dyslipidemia, CHF, CAD, atrial fibrillation on Eliquis/metoprolol treatment. Patient presented to the ER complaining of shortness breath, chest discomfort with radiation to left arm, weakness. Patient states that the symptoms started 3 hours prior to arrival to the emergency department. She also stated that she has had dose episodes of chest/arm discomfort and was told she has a muscle around her heart causing the chest pain. During examination at bedside the patient was having reproducible left arm pain. Heart rate on arrival was in the 140s AFib, now is 100 during my evaluation. Patient said that she took her home medications including metoprolol, does not know the dose of her medication. Rationale: Atrial fibrillation, CAD, chest pain, muscle strain Chest pain workup performed including CBC, BNP, troponin level, chest x-ray. Initially the patient received morphine 2 mg IV, nitroglycerin sublingual 0.4 mg, aspirin 325 mg Laboratory workup was remarkable for elevated BNP 377, Troponin level was 60 Patient was re-evaluate the bedside, said that pain has improved, she is feeling okay she wanted to be discharged home. 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 Continue compliance with her home medications. Vital signs was reviewed at bedside, monitor heart rate in the 90s she has chron ic AFib. DX & DISP Disposition: Discharge Departure Impression: Primary Impression: Unstable angina Additional Impressions: Acute anxiety, Atrial fibrillation with rapid ventricular response, Pain on movement of skeletal muscle Condition: Stable Scripts Acetaminophen (Tylenol) 500 Mg Tab 1 TAB PO Q6HPRN PRN for pain or fever for 15 Days, #60 TAB 0 Refills Prov: OPAL SOTO MD 07/04/24 Additional Instructions: RETURN TO ER FOR ANY ACUTE OR WORSENING SYMPTOMS. FOLLOW-UP IN 1-2 DAYS WITH PRIMARY PROVIDER FOR RECHECK OF TODAY'S SYMPTOMS. Referrals: VICTORINA COOL M.D. (PCP) Time of Disposition: 02:26 OPAL SOTO MD Jul 04, 2024 01:19
[2024-07-04 01:23] LABS: CREATININE 1.1 mg/dL (0.5-1.0); POTASSIUM 4.1 mmol/L (3.5-5.1)
[2024-07-04] MEDS: morPHINE 2 MG SYG IVP ONE (01:34)
[2024-07-04] MEDS: NITROGLYCERIN 0.4 MG SL TAB SL PRN (01:34)
[2024-07-04] MEDS: ASPIRIN 325MG EC TAB PO ONE (01:34)
[2024-07-04 01:46] LABS: B-TYPE NATRIURETIC PEPTIDE 377 pg/mL (0-100)
[2024-07-04] MEDS ORDERED: ACET-66 PO (02:26)
[2024-07-04 02:38] VITALS: BP 109/71; PULSE 91; RESP 18; TEMP 97.6; O2SAT 98
--- NOTE | 2024-07-04 06:25 | EKG ---
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
--- NOTE | 2024-07-04 09:35 | HMCIMG ---
CHEST 1VW REASON: CHEST PAIN COMPARISON: 10/29/2023 FINDINGS: There are mildly increased interstitial markings present throughout both lungs consistent with a component of chronic lung disease. These findings are unchanged compared to multiple prior studies. There is mild cardiomegaly without pulmonary vascular congestion or pleural effusion. Mediastinum and bony thorax appear unremarkable. IMPRESSION: 1. Increased interstitial markings in both lungs with pulmonary fibrosis favored over edema.
== END 2024-07-04 02:54 | disposition home or self-care (01) ==
LOC: EDH 00:53
DX: I20.0 Unstable angina (principal); F41.9 Anxiety disorder, unspecified; I48.20 Chronic atrial fibrillation, unspecified; E78.5 Hyperlipidemia, unspecified; Z79.01 Long term (current) use of anticoagulants; Z79.84 Long term (current) use of oral hypoglycemic drugs; Z79.899 Other long term (current) drug therapy; Z88.5 Allergy status to narcotic agent
CPT/HCPCS: 99285; 96374; 71045; 82550; 84484 ×2; 80048; 83880; 85025; 36415; 93005; J2270

== ENCOUNTER → 2024-09-27 | Outpatient (CLI) | payer OTHER ==
[~2024-09-27] MED LIST changes: +ACET-66 PO
--- NOTE | 2024-09-30 13:30 | HMCSR ---
APPROVED REPORT EXAM: Two-dimensional and M-mode echocardiogram with Doppler and color Doppler. 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 2D Dimensions RVDd3.1 cmLVEF(%)59.2 (>50%)LVED Vol(simp.)79.0 mL IVSd1.4 (0.7-1.1cm)FS(%)31 %LVES Vol(simp.)39.0 mL LVDd3.7 (3.8-5.6cm)Ao Root(2D)2.8 (2.0-3.7cm)LVEF(%, simp.)51 % PWd1.2 (0.7-1.1cm)LVOT diam1.8 (1.8-2.4cm)LA ESV INDEX (BP)50.49 mL/m2 LVDs2.6 (2.5-4.0cm)IVC diam1.9 cm Aortic Valve AoV Vmax1.4 m/Ronna Peak GR8.4 mmHgLVOT Vmax1.2 m/s AoV VTI0.3 mAo Mean GR4.9 mmHgLVOT VTI0.28 m LLOYD (VMAX)2.0 cm2AVA (VTI) 2.0 cm2 Mitral Valve MV E Ipoj304.7 cm/sDECEL Caqh059 msMV Peak GR11 mmHg MV A Vmax79.4 cm/sP 1/2 T70 msMV Mean GR3 mmHg E/A ratio1.9MVA (PHT)3.2 cm2MVA (VTI)1.7 cm2 MR Max PG148 mmHgMR Mean PG94 mmHgMR [id number] cm2 TDI E/E' Ounlxf67.4E/E' Ksiuxzd75.2 Pulmonary Valve PV Vmax0.8 m/sPV VTI0.19 mPV Mean GR1 mmHg PV Peak GR2.4 mmHg Tricuspid Valve TR Vmax2.5 m/sRAP (EST) 8 xePrYKKH72.3 mmHg TR Peak GR24.3 mmHg Left Ventricle Left ventricular cavity size is normal. There is normal LV segmental wall motion. There is mild to mo derate concentric left ventricular hypertrophy. No evidence of LVOT obstruction with Valsalva maneuve r LVEF is 50-55%. Stage II, diastolic dysfunction. Right Ventricle The right ventricle is normal size. Right ventricular systolic function is mildly reduced. Atria The left atrium is severely dilated. The right atrium size is normal. Aortic Valve Aortic valve is trileaflet. Aortic valve leaflets are sclerotic but open well. No aortic regurgitatio n is present. There is no aortic valvular stenosis. Mitral Valve Mitral posterior annular calcification is mild to moderate. Mitral regurgitation is moderate. There i s no mitral valve stenosis. Tricuspid Valve The tricuspid valve leaflets appear normal. There is mild tricuspid regurgitation. Right ventricular systolic pressure is estimated at 30-40 mmHg. Pulmonic Valve The pulmonic valve leaflets appear normal. There is no pulmonic valvular regurgitation. Great Vessels The aortic root is normal in size. IVC is dilated and collapses >50% with inspiration. Pericardium No pericardial effusion. Conclusion LVEF is 50-55%. There is mild to moderate concentric left ventricular hypertrophy. No evidence of LVOT obstruction with Valsalva maneuver There is normal LV segmental wall motion. Stage II, diastolic dysfunction. Mitral regurgitation is moderate. Mitral posterior annular calcification is mild to moderate. There is mild tricuspid regurgitation. Right ventricular systolic pressure is estimated at 30-40 mmHg. The aortic root is normal in size.
== END | disposition home or self-care (01) ==
LOC: SHCH 09:04
PROVIDERS: ATTEND Internal Medicine Cardiovascular Disease
DX: I08.3 Combined rheumatic disorders of mitral, aortic and tricuspid valves (principal); I42.1 Obstructive hypertrophic cardiomyopathy
CPT/HCPCS: 93306

== ENCOUNTER → 2024-10-26 | Outpatient (CLI) | payer OTHER | END | disposition home or self-care (01) | LOC: SHCH 13:33 | PROVIDERS: ATTEND Internal Medicine Cardiovascular Disease | DX: I08.3 Combined rheumatic disorders of mitral, aortic and tricuspid valves (principal); I42.1 Obstructive hypertrophic cardiomyopathy | CPT/HCPCS: 93306 ==